=== PATIENT | female | born 1960 | race Hispanic/Latino ===

== ENCOUNTER 2020-05-06 06:34 | Day surgery (SDC) | payer BC ==
[2020-05-06] MEDS ORDERED: CEFAZOLIN/SWI 1gm 1 GM/10 ML SYR ONE (07:03)
[2020-05-06] MEDS ORDERED: Ringers Lactate 1,000 ML IV ONE (07:03)
[2020-05-06] MEDS ORDERED: LIDOCAINE 2% MPF 5 ML VIAL ONE (07:25)
[2020-05-06] MEDS ORDERED: ONDANSETRON 4 MG/2 ML VIAL ONE (07:25)
[2020-05-06] MEDS ORDERED: FENTANYL CITR 100 MCG/2 ML ONE ×2 (07:25→08:42)
[2020-05-06] MEDS ORDERED: MIDAZOLAM HCL 2 MG/2 ML INJ ONE (07:25)
[2020-05-06] MEDS ORDERED: ROCURONIUM 50 MG/5 ML VIAL IV ONE (07:25)
[2020-05-06] MEDS ORDERED: dexAMETHasone 10 MG/ML VIAL ONE (07:25)
[2020-05-06] MEDS ORDERED: propofoL 200 MG/20 ML VIAL IV ONE (07:25)
[2020-05-06] MEDS ORDERED: BACITRACIN OINTMENT 15 GM TUBE TOP ONE (07:42)
[2020-05-06] MEDS ORDERED: OFLOXACIN OPH 0.3%-5 ML BTL ONE (07:42)
[2020-05-06] MEDS ORDERED: Mastisol Adhesive Liq ONE (07:42)
[2020-05-06] MEDS: LIDOCAINE 1% W/EPI 1:100,000 MDV 20 ML VIAL ONE ×2 (07:50→08:12)
[2020-05-06] MEDS ORDERED: EPHEDRINE SULF 50 MG/ML VIAL ONE (08:14)
[2020-05-06] MEDS ORDERED: EPINEPHRINE/PF 1 MG/ML AMP ONE (08:49)
[2020-05-06] MEDS ORDERED: KETOROLAC 30 MG/ML INJ ONE (09:40)
[2020-05-06 10:27] VITALS: BP 117/67; TEMP 97.3; O2SAT 99
[2020-05-06] MEDS ORDERED: IBUPROFEN 400 MG TAB ONE (10:34)
--- NOTE | 2020-05-06 10:41 | OP ---
Date of Procedure: 05/06/2020 Surgeon: Madeline Callejas MD Preoperative Diagnosis: Right central perforated eardrum with 30 decibel conductive hearing loss. Postoperative Diagnosis: Right central perforated eardrum with 30 decibel conductive hearing loss. Procedure: Tympanoplasty, right. Indication For Procedure: Ms. Aaron has had a long history of right hearing loss in association with a perforated eardrum, which was initially evaluated by me in 2011. She deferred a treatment for a variety of reasons and returned for re-evaluation and seeking surgical intervention. She was noted to have approximately 60% anterior perforation of the eardrum without evidence of cholesteatoma or granulation, infection, or chronic inflammation of the middle ear space. The risks, benefits, and alternatives to the procedure were discussed with the patient who agreed to proceed. Description Of Procedure: The patient was brought to the operating room. She was placed under general anesthesia via oral endotracheal tube. The head of bed was turned 90 degrees. The skin behind the ear was cleaned with alcohol and injected with 1% lidocaine with epinephrine. The operating microscope was used in conjunction with an ear speculum in order to visualize the ear canal. Cerumen was removed with a wire loop. The perforation was identified and examined. The ear canal was prepped with Betadine on a cotton swab. The right ear was prepped and draped in a sterile fashion. A post-auricular incision was made and a facial graft was collected, pressed and set aside to dry. The microscope was used to visualized the perforation and the pick, Renata and cup forceps were used to freshen the edges of the perforation. An endaural incision was made with a round knife and a tympanomeatal flap was elevated with a small and large duckbill. The fibrous anulus was identified and elevated. The middle ear mucosa was healthy and quiet. The anterior middle ear was packed with ofloxin soaked gelfoam. The previously harvested graft was placed medial to the tympanic membrane and positioned to completely cover the perforation. The tympanomeatal flap was then redraped and the perforation re-inspected to ensure complete coverage with the graft. The ear canal was then packed with ofloxin soaked and dry gel foam. The postauricular incision was closed in a layered fashion with Vicryl and fast- absorbing gut sutures. Additional gel foam was packed to the meatus and a mastoid dressing applied to the head. The patient was then turned back to the anesthesia team for awakening and extubation in the operating room. Disposition: patient will be discharged home later today with standard post-ear surgeyr instructions and follow up with Dr. Callejas in 1 month. HUONG Voice ID: [id number] Report ID: [id number] MTDD
--- OUTSIDE RECORDS SUMMARY | 2020-05-11 18:22 | XMS REPORT | Summary of Care ---
:1960 Author Organization [address] [address] Care Team Providers Name Role Phone Stefanie Panchal Sisi Primary Care Provider Reason for Visit Reason Comments Refill Request Encounter Details Date Type Department Care Team Description 02/08/2020 Refill [facility] Rory Matta MD Refill Request Neurology-[address] [place] [id number] [address] [place] [address] [facility] [phone] Allergies No Known Allergiesdocumented as of this encounter (statuses as of 02/09/2020) Medications Medication Sig Dispensed Refills Start Date End Date Status PREMARIN 1.25 mg TK 1 T PO QD 3 12/30/2018 Active tablet losartan 25 mg TAKE ONE HALF 2 02/06/2019 Active tablet TO ONE TABLET PO ONCE A DAY PO traZODone 100 mg TK 1 T PO HS 2 02/19/2019 Active tablet PRN FOR SLEEP RABEprazole 20 mg TK 1 T PO QD 2 01/13/2019 Active tablet topiramate 25 mg TK 1 T PO QPM 3 01/13/2019 Active tablet FOR FREQUENT MIGRAINES BUTALBITAL-ACETAM TAKE ONE 120 capsule 0 02/09/2020 Active INOPHEN-CAFF CAPSULE BY 50-300-40 mg per MOUTH EVERY 4 capsuleIndication TO 6 HOURS s: Occipital NEEDED. neuralgia of right side BUTALBITAL-ACETAM TAKE ONE 120 capsule 0 07/01/2019 Discontinued INOPHEN-CAFF CAPSULE BY 0 50-300-40 mg per MOUTH EVERY 4 capsule TO 6 HOURS NEEDED. documented as of this encounter (statuses as of 02/09/2020) Active Problems Not on filedocumented as of this encounter (statuses as of 02/09/2020) Social History Tobacco Use Types Packs/Day Years Used Date Never Smoker Alcohol Use Drinks/Week oz/Week Comments Yes socially Sex Assigned at Date Recorded Not on file Job Start Date Occupation Industry Not on file Not on file Not on file Travel History Travel Start Travel End No recent travel history available. documented as of this encounter Last Filed Vital Signs Not on filedocumented in this encounter Plan of Treatment Health Maintenance Due Date Last Done Comments HEPATITIS C (HCV) SCREEN 1960 DTaP,Tdap,and Td Vaccines 1973 (1 - Tdap) PAP SMEAR 1983 COLONOSCOPY 2012 Zoster Recombinant Vaccine 2012 (SHINGRIX) (1 of 2) Breast Cancer Screening 01/06/2020 01/05/2019, 01/03/2018, (MAMMOGRAM) 07/16/2016, Additional history exists Depression Screening 02/24/2020 02/23/2019 INFLUENZA VACCINE (#1) 2020 PNEUMOCOCCAL 0-64 YEARS Aged Out No longe r eligible COMBINED SERIES based on patient 's age to complete this topic documented as of this encounter Results Not on filedocumented in this encounter Visit Diagnoses Diagnosis Occipital neuralgia of right side - Prim pascale documented in this encounter Insurance Payer Benefit Plan Subscriber ID Effective Dates Phone Address Type / Group BCBS OF BCBS [facility] [id number] 2017-Presen [phone] [address] PPO/POS [place] - OUT OF t 7 [id number] [place] [address] [place] [id number] 2017-[place] [phone] [address] PPO/POS [facility] [id number] [place] [id number] documented as of this encounter
--- OUTSIDE RECORDS SUMMARY | 2020-05-11 18:22 | XMS REPORT | Continuity of Care Document ---
:1960 Author Organization [facility] t Address [address] [place] [address] Care Team Providers Name Role Phone Rory Matta MD Attending Clinician Doctor Unassigned, Name Attending Clinician Unavailable Problems Condition Condition Condition Status Onset Resolution Last Treating Co mments Source Name Details Category Date Date Treatment Clinician Date Elevated Elevated Problem [facility] without Margo kes - diagnosis diagnosis Holden chasidy of of l hypertensi hypertensi Ou tpati on on ent Clinics Overactive Overactive Problem Active [facility] bladder bladder [facility] Gastroesop Gastroesop Problem Active [facility] hageal hageal [facility] - reflux reflux [facility] disease, disease, l esophagiti esophagiti Ou tpati s presence s presence en t not not Clinics specified specified Irritable Irritable Problem Active [facility] bowel bowel [facility] - syndrome syndrome [facility] a without without l diarrhea diarrhea Outpat i ent Clinics Sinus Sinus Problem Active [facility] problem problem [facility] Insomnia, Insomnia, Problem Active [facility] unspecifie unspecifie Margo kes - d type d type [facility] l Outpat[facility] ent Clinics Current Current Problem Active [facility] long-term long-term Luke s - use of use of Memoria postmenopa postmenopa l usal usal Outpati hormone hormone ent replacemen replacemen Cl inics t therapy t therapy Chronic Chronic Problem Active [facility] constipati constipati Margo kes - on on [facility] Out[facility] ent Clinics Motion Motion Problem Active [facility] sickness, sickness, Luke s - initial initial Memoria encounter encounter l Outpati ent Clinics Essential Essential Problem Active [facility] hypertensi hypertensi Margo kes - on on [facility] Left knee Left knee Problem Active [facility] pain, pain, [facility] - unspecifie unspecifie Me moria d d l chronicity chronicity Ou tpati ent Clinics Migraine Migraine Problem [facility] without without [facility] - status status [facility]oria migrainosu migrainosu l s, not s, not Outpati intractabl intractabl en t e, e, Clinics unspecifie unspecifie d migraine d migraine type type Perforated Perforated Problem Active [facility] right right [facility] - tympanic tympanic Memori a membrane membrane l on on Outpati examinatio examinatio en t n n Clinics Sinus Sinus Problem Active [facility] symptom symptom [facility] Urinary Urinary Problem Active [facility] incontinen incontinen Margo kes - ce, ce, Memoria unspecifie unspecifie l d type d type [facility] Urinary Urinary Problem Active [facility] urgency urgency [facility] Allergies, Adverse Reactions, Alerts This patient has no known allergies or adverse reactions. Medications Ordered Filled Start Stop Current Ordering Indication Dosage Frequency Signature Comments Components Source Medication Medication Date Date Medication? Clinician (SIG) Name Name Augmentin Augmentin 2019- No Stefanie [address] [facility] 2-10-02 Millender [facility] - 00:00: 00:00 [facility] 00 :00 l [facility] Procedures This patient has no known procedures. Encounters Start End Encounter Admission Attending Care Care Encounter Source Date/Time Date/Time Type Type Clinicians Facility Department ID 2020-05-06 2020-05-06 [facility] [id number] 00:00:00 00:00:00 Rory Alonso [id number] [place] [id number] Professio [phone] [address] 2020-02-08 2020-02-[address] [facility] [id number] 00:00:00 00:00:00 Rory Alonso [id number] [place] [id number] Professio [phone] [address] 2020-02-03 2020-02-[address] [facility] [id number] 00:00:00 00:00:00 Rory Alonso [id number] [place] [id number] Professio [phone] nal 092 [facility] 2019-09-23 2019-09-23 [facility] [id number] [facility] 19:17:00 19:17:00 [facility] Medicine Outpati ent Clinics 2019-09-08 2019-09-08 [facility] [id number] [facility] 13:00:00 13:00:00 [facility] Outpati ent Clinics 2019-09-01 2019-09-01 [facility] [id number] 11:09:00 11:09:00 [facility] Outpati ent Clinics 2019-06-08 2019-06-08 [facility] [id number] [facility] 15:35:00 15:35:00 [facility] Medicine Outpati ent Clinics 2019-06-08 2019-06-08 [facility] [id number] 15:15:00 15:15:00 [facility] Medicine Outpati ent Clinics 2019-05-20 2019-05-20 [facility] [id number] [facility] 23:29:00 23:29:00 [facility] Outpati ent Clinics 2019-05-20 2019-05-20 [facility] [id number] 11:20:00 11:20:00 [facility] Outpati ent Clinics 2019-03-21 2019-03-21 [facility] [id number] 00:00:00 00:00:00 Rory Alonso [id number] [place] [id number] Professio [phone] [facility]2 [facility] 2019-03-11 2019-03-11 Orders Doctor LEXIE [id number] 00:00:00 00:00:00 Only Unassigned, DANIELLE [id number] [place] [phone] [id number] 2019-03-10 2019-03-10 [facility] [id number] 13:00:00 13:00:00 [facility] Medicine Outpati ent Clinics 2019-03-06 2019-03-06 Patient Doctor LEXIE [id number] 00:00:00 00:00:00 Secure Msg Unassigned, DANIELLE [id number] [place] [id number] [phone] [id number] 2019-03-04 2019-03-04 [facility] [id number] 00:00:00 00:00:00 Rory Gene [place] [id number] [place] [id number] Professio [phone] [address] 2019-03-02 2019-03-02 [facility] [id number] 12:42:23 23:59:00 Encounter Rory Gene [place] [id number] [place] [id number] [place] [phone] [id number] 2019-03-02 2019-03-02 [facility] [id number] 12:41:35 12:41:35 Encounter Rory Gene [place] [id number] [place] [id number] [place] [phone] [id number] 2019-03-02 2019-03-02 [facility] [id number] 00:00:00 00:00:00 Rory Gene [place] [id number] [place] [id number] Professio [phone] [address] 2019-01-13 2019-01-13 [facility] [id number] 10:00:00 10:00:00 [facility] 2018-09-09 2018-09-09 [facility] [id number] 13:00:00 13:00:00 [facility] Outpati ent Clinics 2018-02-11 2018-02-11 Outpatient Clifton [facility]azot [id number] 09:14:00 09:14:00 [facility] 2017-11-26 2017-11-26 Outpatient Cl[facility]ton [facility] [id number] [facility] 13:00:00 13:00:00 [facility] Results This patient has no known results.
--- OUTSIDE RECORDS SUMMARY | 2020-05-11 18:23 | XMS REPORT | Summary of Care ---
:1960 Author Organization [address] [address] Care Team Providers Name Role Phone Stefanie Panchal Sisi Primary Care Provider Reason for Visit Reason Comments Refill Request Encounter Details Date Type Department Care Team Description 02/03/2020 Refill [facility] Rory Matta MD Refill Request Neurology-[address] [address] [address] [place] [address] [facility] [phone] Allergies No Known Allergiesdocumented as of this encounter (statuses as of 02/09/2020) Medications Medication Sig Dispensed Refills Start Date End Date Status PREMARIN 1.25 mg TK 1 T PO QD 3 12/30/2018 Active tablet losartan 25 mg tablet TAKE ONE HALF TO 2 02/06/2019 Active ONE TABLET PO ONCE A DAY PO traZODone 100 mg TK 1 T PO HS PRN 2 02/19/2019 Active tablet FOR SLEEP RABEprazole 20 mg TK 1 T PO QD 2 01/13/2019 Active tablet topiramate 25 mg TK 1 T PO QPM FOR 3 01/13/2019 Active tablet FREQUENT MIGRAINES documented as of this encounter (statuses as [...] Results Not on filedocumented in this encounter Insurance Payer Benefit Plan Subscriber ID Effective Dates Phone Address Type / Group [employer] [employer] [place] [id number] 2017-[place] [phone] [address] PPO/POS [place] - OUT OF 7 [id number] [place] [address] [place] [id number] 2017-[place] [phone] [address] PPO/POS [facility] [id number] [place] [address] documented as of this encounter
== END 2020-05-06 10:50 | disposition home or self-care (01) ==
LOC: OR 06:34
PROVIDERS: ATTEND Otolaryngology
PROC: 09R777Z Replacement of Right Tympanic Membrane with Autologous Tissue Substitute, Via Natural or Artificial Opening (ICD-10-PCS; principal; 2020-05-06 07:30)
DX: H72.01 Central perforation of tympanic membrane, right ear (principal); I10 Essential (primary) hypertension; K21.9 Gastro-esophageal reflux disease without esophagitis; Z20.828 Contact with and (suspected) exposure to other viral communicable diseases
CPT/HCPCS: 93005 ×2; 69631; 15769; U0002; J2704; J0171; J2250; J3010 ×2; J1100; J0690; J7120; J2405